=== PATIENT | male | born 1985 | race Caucasian/White ===

== ENCOUNTER 2016-11-11 13:54 | Emergency (ER) | payer SELFPAY ==
[~2016-11-11] VITALS: Ht 185.4 cm; Wt 83.0 kg
[~2016-11-11 13:54] MED LIST: DOXY100T PO; TRAM50TA PO
[2016-11-11 13:57] VITALS: BP 125/90; PULSE 97; RESP 16; TEMP 100.9; O2SAT 97
[2016-11-11 14:09] VITALS: BP 125/90; PULSE 97; RESP 18; TEMP 100.9; O2SAT 97
--- NOTE | 2016-11-11 14:19 | PD ---
HPI Chief Complaint: Cold / Flu Symptoms Time Seen by Provider: 14:16 Travel History International Travel<30 days: No Contact w/Intl Traveler<30days: No Traveled to known affect area: No History of Present Illness HPI 31-year-old male presents the emergency department with 4 day history of upper respiratory symptoms with fever, cough, chest congestion, body aches, and wheezing. Patient denies nausea, vomiting, diarrhea. Patient is a smoker. Patient states his symptoms of just gotten progressively worse over the past 3 days. He denies specific chest tenderness. He denies significant headache. He denies ear pain. He has no known drug allergies. PFS Past Medical History ADD: Yes Diminished Hearing: No Tetanus Vaccination: < 5 Years Influenza Vaccination: No Social History Alcohol Use: Yes (4 PACK OF BEER PER DAY, SOME LIQUOR) Tobacco Use: Yes (1/2 PPD) Substance Use: Yes (MARIJUANA, COCAINE) Allergies-Medications (Allergen,Severity, Reaction): Coded Allergies: No Known Allergies (Verified , 11/11/16) Reported Meds & Prescriptions Reported Meds & Active Scripts Active No Active Prescriptions or Reported Medications Review of Systems Except as stated in HPI: all other systems reviewed are Neg General / Constitutional: Positive: Fever, Chills Eyes: No: Visual changes HENT: Positive: Rhinitis, Rhinorrhea, Congestion, No: Headaches, Neck Stiffness, Neck Pain, Earache Cardiovascular: No: Chest Pain or Discomfort Respiratory: Positive: Cough, Shortness of Breath, Wheezing, No: Sneezing, Orthopnea, Hemoptysis, Pleuritic Pain Gastrointestinal: No: Nausea, Vomiting, Diarrhea, Abdominal Pain Genitourinary: No: Dysuria Musculoskeletal: No: Pain Skin: No Rash Neurologic: No: Weakness Psychiatric: No: Depression Endocrine: No: Polydipsia Hematologic/Lymphatic: No: Easy Bruising Physical Exam Narrative GENERAL: Patient appears ill but not septic. SKIN: Warm and dry. Normal color. Normal turgor. HEAD: Atraumatic. Normocephalic. EYES: Pupils equal and round. No scleral icterus. No injection or drainage. ENT: No nasal bleeding or discharge. Mucous membranes pink and moist. ENT clear bilaterally. Patient is clear rhinitis. Pharynx appears mildly injected with no significant erythema or swelling. Airway is patent. No sinus tenderness to palpation. NECK: Trachea midline. Supple nontender without significant lymphadenopathy. CARDIOVASCULAR: Regular rate and rhythm. RESPIRATORY: No accessory muscle use. Diffuse wheezes throughout to auscultation. No rales or rhonchi. Breath sounds equal bilaterally. GASTROINTESTINAL: Abdomen soft, non-tender, nondistended. Hepatic and splenic margins not palpable. MUSCULOSKELETAL: Extremities without clubbing, cyanosis, or edema. No obvious deformities. NEUROLOGICAL: Awake and alert. No obvious cranial nerve deficits. Motor grossly within normal limits. Five out of 5 muscle strength in the arms and legs. Normal speech. PSYCHIATRIC: Appropriate mood and affect; insight and judgment normal. Data Data Last Documented VS Vital Signs Date Time Temp Pulse Resp B/P Pulse Ox O2 Delivery O2 Flow Rate FiO2 11/11/16 15:41 99.1 11/11/16 14:09 97 18 125/90 97 Orders Ibuprofen (Motrin) (11/11/16 14:30) Influenzae A/B Antigen (11/11/16 14:19) Albuterol-Ipratropium Neb (Duoneb Neb) (11/11/16 14:30) Chest, Pa & Lat (11/11/16 14:25) MDM Medical Decision Making Medical Screen Exam Complete: Yes Emergency Medical Condition: Yes Differential Diagnosis Influenza. Bronchitis. Sinusitis. Pneumonia. Febrile illness. Wheezing. Narrative Course Patient is medically stable at time of exam. Influenza test is sent to the lab. Patient is given a DuoNeb with improved symptoms. Chest x-ray is ordered showing no acute process per radiologist. Patient discharged home on azithromycin 250 mg 2 today and then one a day for 4 more days. He is given albuterol metered-dose inhaler 2 puffs every 4-6 hours. He is also given prednisone 20 mg twice a day 5 days. Patient should quit smoking. Work note is given. Patient is to rest push fluids and follow up if symptoms do not improve or worsen. Diagnosis Primary Impression: Acute wheezy bronchitis Referrals: Primary Care Physician Patient Instructions: General Instructions Additional Instructions: Chest x-ray is ordered showing no acute process per radiologist. Patient discharged home on azithromycin 250 mg 2 today and then one a day for 4 more days. He is given albuterol metered-dose inhaler 2 puffs every 4-6 hours. He is also given prednisone 20 mg twice a day 5 days. Patient should quit smoking. Work note is given. Patient is to rest push fluids and follow up if symptoms do not improve or worsen. Med/Other Pt SpecificInfo: Prescription(s) given Scripts Prednisone 20 Mg Tab20 Mg PO BID #10 TAB Prov:Beverley Hernandez MD 11/11/16 Azithromycin 250 Mg [id number] Mg PO DIRECTED #6 TAB Take 2 tabs (500 mg) on day 1 then 1 tab daily x 4 days. Prov:Beverley Hernandez MD 11/11/16 Albuterol 18 GM Inh (Ventolin Hfa 18 GM Inh)90 Mcg/Act Aer2 Puff INH Q4-6H PRN ( SHORTNESS OF BREATH) #1 INHALER Prov:Beverley Hernandez MD 11/11/16 Disposition: 01 DISCHARGE HOME Condition: Stable Reuben Lobato Nov 11, 2016 14:19
[2016-11-11] MEDS ORDERED: RESP: ALBUTEROL 2.5 MG/IPRATROPIUM 0.5 MG NEB (SCH) NEB ONE (14:30)
[2016-11-11] MEDS ORDERED: IBUPROFEN 800 MG TAB PO ONE (14:30)
[2016-11-11 15:41] VITALS: TEMP 99.1
[2016-11-11] MEDS ORDERED: VENTAER INH (15:42)
[2016-11-11] MEDS ORDERED: PRED20 PO (15:42)
[2016-11-11] MEDS ORDERED: AZIT250T3 PO (15:42)
--- NOTE | 2016-11-11 15:42 | RADHPO ---
EXAM DATE/TIME: 11/11/2016 14:41 [facility] COMPARISON: No previous studies available for comparison. INDICATIONS : Short of breath, coughing. MEDICAL HISTORY : None. SURGICAL HISTORY : None. ENCOUNTER: Initial ACUITY: 3 days PAIN SCORE: 0/10 LOCATION: chest FINDINGS: PA and lateral views of the chest demonstrate the lungs to be symmetrically aerated without evidence of mass, infiltrate or effusion. The cardiomediastinal contours are unremarkable. Osseous structure s are intact. CONCLUSION: No acute disease. Mark Bonilla MD on November 11, 2016 at 15:40 Board Certified Radiologist. This report was verified electronically.
== END 2016-11-11 16:07 | disposition home or self-care (01) ==
LOC: PHEFT 13:54
DX: J40 Bronchitis, not specified as acute or chronic (principal); F17.210 Nicotine dependence, cigarettes, uncomplicated
CPT/HCPCS: 71020; 87804; 94664; 99283